=== PATIENT | female | born 1985 ===

== ENCOUNTER 2023-04-26 10:40 | Outpatient (REF) | payer BC, SELFPAY ==
[2023-04-26 14:00] LABS: *AMPHETAMINES SCREEN URINE Negative (Negative); *BARBITURATES SCREEN URINE Negative (Negative); *BENZODIAZEPINES SCREEN URINE Negative (Negative); Cannabinoids THC Negative (Negative); Cocaine Screen,Urine Negative (Negative); METHADONE URINE SCREEN Negative (Negative); OPIATES URINE SCREEN Negative (Negative)
[2023-04-26 14:02] LABS: Tricyclic Antidepressants Negative (Negative)
== END 2023-04-26 10:41 | disposition home or self-care (01) ==
LOC: LBN 10:40
PROVIDERS: PCP Advanced Practice Midwife; Visit Provider Advanced Practice Midwife
DX: O09.513 Supervision of elderly primigravida, third trimester (principal); O99.013 Anemia complicating pregnancy, third trimester
CPT/HCPCS: 80307; 87081

== ENCOUNTER 2023-05-06 03:25 | Inpatient (IN) | payer BC, SELFPAY ==
[2023-05-06] VITALS (17 sets, daily range): BP systolic 108–140; BP diastolic 59–82; PULSE 78–111; RESP 16–18; TEMP 36.3–36.8; O2SAT 92–100
[2023-05-06 03:54] LABS: HCT 33.2 % (36.0-46.0); HGB 10.4 g/dL (11.2-15.7); MCH 20.8 pg (27.0-33.0); MCHC 31.3 % (32.0-36.0); MPV 10.3 fL (8.0-11.0); Platelet Count 238 10^3/uL (130-400); RBC 4.99 10^6/uL (3.93-5.22); RDW 19.6 % (11.7-14.6); RDW-SD 44.2 fL; WBC 16.18 10^3/uL (4.4-10.8)
--- NOTE | 2023-05-06 05:27 | W.PM.OBHPL1 ---
Date of service: 05/06/23 Time of Service: 05:00 Assessment and Plan Assessment and plan (1) Uterine contractions: Status: Acute Assessment and plan: 1. 20 minute tracing obtained on arrival that was reassuring. 2. VE 2/90/-1 posterior and soft. Spann score 8 3. Offer of continued observation or discharge to home to return with active labor reviewed, they plan to stay at this time for further assessment due to distance from home being approximately 1 hour away. 4. Her Manufacturing Teacher from home practice is with her as well as her for support. Will support minimal intervention at this time as there is no medical indication for intervention, support labor, reassess as indicated. 5. Will admit to inpatient when in active labor or if otherwise indicated. 6. Expect NVD. [facility] OB-HPI Labor/Delivery History of Present Illness Reason for Visit: rule out labor Chief Complaint: Uterine Contractions. TELMA Calculator Estimated Delivery Date Method Current WG Current Estimate 05/18/23 Ultrasound #1 38w 2d Other Estimates 05/18/23 LMP (Certain) 38w 2d Comments: Lyndsay, her , Roman, and Mame (her home lime supervisor) have presented for assessment of labor. She is a healthy young women with the diagnosis of Thalassemia trait and has recently had diagnosis of anemia which has responded to iron therapy. This is their first baby. has been uncomplicated outside of the need for her to transfer into hospital care from home . She has been having regular contractions and loss of mucous plug since the evening of 05/05. Contractions have continued to become closer and stronger over that time. Mame had done a cervical exam at Lyndsay's home in the evening of 05/05 and was 1cm and not well effaced. They are working well together and are requesting support but not intervention. ELAINE History of Present Expected Delivery Route/Plan - RENU/ collab d/t thalassemia trait FOB - Roman GBS negative Specific Issues/Plan 1. Transfer from Home at 36 + 6 due to anemia. 2. Alpha thalassemia Trait / Anemia 04/22- Hgb 9.8/31.7. Was taking gummies without iron, Started iron supplements QD 04/09. 2a. hgb 10.7 Hep C neg . Hemorrhoids, cyst in vestibular gland on right side. will monitor. 4. Advanced maternal age- normal anatomy scan at [facility]. [place] [facility] [place] and thalassemia trait. 5. Constipation - improved with magnesium PO Assessment: History Reviewed & Current Narrative: There are additional noted from most of her care scanned into chart as well. Review of Systems All systems reviewed & are unremarkable except as noted in HPI and below (uterine contractions) Genitourinary Comments: mucous plug loss with some pink discharge PFSH All Active Problems (Updated 05/06/23 @ 05:43 by Elenita Ramirez CNM) Uterine contractions (Acute) (Acute) Anemia affecting first (Acute) Alpha thalassemia (Acute) Advanced maternal age (AMA) in (Acute) Family History Other Diabetes Stroke Social History Smoking risk assessment performed?: No Current gender identity: female History History 1 Para Hx # Term Pregnancies 0 Multiple births Hx # Pregnancies Ectopic pregnancies AB induced Hx Number of Living Children AB spontaneous Meds Allergies and Home Medications Allergies Allergy/AdvReac Type Severity Reaction Status Date / Time seasonal AdvReac Other (See Uncoded 05/06/23 05:37 Comment) Home Medications Medication Instructions Recorded Confirmed Type blood builder PO .qod 04/26/23 History lactobacillus combination no.4 3 3,000 mmu cells PO DAILY 04/26/23 History billion cell capsule (Probiotic) magnesium 250 mg tablet 250 mg PO DAILY 04/26/23 History mecobalamin (vitamin B12) 1,000 1,000 mcg PO DAILY 04/26/23 History mcg chewable tablet Exam Physical Exam Vital signs: Pulse BP 98 H 131/82 05/06/23 03:11 05/06/23 03:11 Vital Signs Reviewed: Yes Constitutional Constitutional: no acute distress (is working well with her contractions) Detailed Labor and Delivery Exam Dilation: 2 Effacement (%): 90 station: -1 Cervix position: posterior Consistency: soft Spann Score: Cervical Points Exam 0 1 2 3 Dilation Closed 1-2cm 3-4 cm 5-6cm Effacement 0-30% 40-50% 60-70% 80% Consistency Firm Medium Soft Station -3 -2 -1,0 +1,+2 Position Posterior Mid Anterior SPANN Score(Cervical Ripeness Score): 8 Amniotic Membrane Status: Intact Monitor Mode: Palpation Contraction Frequency(min): 4-8 Contraction Duration(sec): 60 Contraction Intensity: Mild/Moderate Comments: initial 20 minute tracing is reassuring with irregular contractions noted, CAT I Fetus A Est. Weight: 7 lb Assessment Note: currently tracing is off, FHR will be by doppler. She had 20 minute tracing on arrival that was CAT I HEENT Exam HEENT Exam: Normal Neck Exam Neck Exam: Normal (visual exam normal, full range of motion) Chest/Brest/Axilla Exam Chest Exam: Normal Breast Exam Breast Exam: Not Done Respiratory Exam Respiratory Exam: Normal Cardiovascular Exam Cardiovascular Exam: Normal Abdominal Exam Abdominal Exam: Normal (gravid uterus, size equals dates, cephalic presentation) Rectal Exam Rectal Exam: Not Done Exam Exam: Normal Extremities Exam Extremities Exam: Normal Back/Spine/Pelvis Exam Back Exam: Not Done Pelvis Adequate: Yes Skin Exam Skin Exam: Normal Neurological Exam Neurological Exam: Normal Psychiatric Exam Psychiatric Exam: Normal Results Results Group Beta Strep: Negative Blood Type: B+ Rubella Status: Immune Varicella Immunity: Not Tested Lab Results: Hep B and C neg, HIV neg, GC CT neg, Abnormal Lab Findings: Abnormal Labs 05/06/23 03:43 WBC 16.18 H Hgb 10.4 L Hct 33.2 L MCV 67 L MCH 20.8 L MCHC 31.3 L RDW 19.6 H Risk Assessment Risk for Shoulder Dystocia 40 Weeks: NEGATIVE FOR: EFW> 4500 gms, Maternal Weight Gain >40lb or Post Dates Delivery Plan @ 36wks: at [facility] Delivery Plan @ 40 wks: VAD Risk for Pre-Eclampsia Date Initiated/Initials: 04/26/23 KM Yes, if 2 or more: POSITIVE FOR: Nulliparity and Age>= 35 yrs; NEGATIVE FOR: >10yr btwn pregnancies, BMI>30, ethinicty, Mother/Sister w/ Pre-E or Previous IUGR Risk for Post- Hemorrhage 36 Weeks: NEGATIVE FOR: Anemia, hgb<10, Low platelets(thrombocytopenia), Gestational HTN or Pre-E, Polyhydraminios or EFW>4500gms 40 Weeks: NEGATIVE FOR: Anemia, hgb<10, Low platelets (thrombocytopenia), Gestation HTN or Pre-E, Polyhydraminios or EFW>4500gms At Risk?: No (prodromal latent labor, mild anemia, risk will be reassessed in active labo) Risks Reviewed Risks Reviewed Upon Admission: Yes
[2023-05-06 05:52] LABS: MCV 67 fL (80-95)
--- NOTE | 2023-05-06 10:32 | PGE_ITS ---
Date of service: 05/06/23 Time of Service: 10:32 Pelvic Exam Dilation: 3 Effacement (%): 90 station: 0 Cervix Position: mid Consistency: soft Nitrazine: Positive Contractions Monitor Mode: External Contraction Frequency(min): every 4 Contraction Duration(sec): 50 Intensity: Moderate/Strong Fetus A Monitor: Doppler Heart Rate Baseline: 130 Presentation: Vertex FHR Rhythm: Regular Decelerations: None Amniotic Membrane Status: Ruptured Assessment Note: Carina declines continuous monitoring Assessment and Plan Assessment and plan (1) Spontaneous onset of labor: Status: Acute Assessment and plan: Comfort measures, ball and mat provided. Anticipate . Objective Abnormal lab results 05/06/23 Range/Units 03:43 WBC 16.18 H (4.4-10.8) 10^3/uL Hgb 10.4 L (11.2-15.7) g/dL Hct 33.2 L (36.0-46.0) % MCV 67 L (80-95) fL MCH 20.8 L (27.0-33.0) pg MCHC 31.3 L (32.0-36.0) % RDW 19.6 H (11.7-14.6) % Temp Pulse Resp BP Pulse Ox 97.9 F 97 H 16 109/61 98 05/06/23 08:14 05/06/23 08:14 05/06/23 08:14 05/06/23 08:14 05/06/23 08:14 Laboratory Results WBC 16.18 10^3/uL (4.4-10.8) H 05/06/23 03:43 RBC 4.99 10^6/uL (3.93-5.22) 05/06/23 03:43 Hgb 10.4 g/dL (11.2-15.7) L 05/06/23 03:43 Hct 33.2 % (36.0-46.0) L 05/06/23 03:43 MCV 67 fL (80-95) L 05/06/23 03:43 MCH 20.8 pg (27.0-33.0) L 05/06/23 03:43 MCHC 31.3 % (32.0-36.0) L 05/06/23 03:43 RDW 19.6 % (11.7-14.6) H 05/06/23 03:43 Plt Count 238 10^3/uL (130-400) 05/06/23 03:43 MPV 10.3 fL (8.0-11.0) 12 03:43 Patient ABO/Rh B Positive 12 03:43 Antibody Screen NEGATIVE 05/06/23 03:43 Subjective Interval history since last seen: Carina has been resting and napping. She awoke with stronger contractions and she has been walking around the room. She is leaking a small amount of clear fluid. Her home health and safety director has been providing labor support. Results Hemoglobin/Hematocrit: Hgb 10.4 g/dL (11.2-15.7) L 05/06/23 03:43 Hct 33.2 % (36.0-46.0) L 05/06/23 03:43 Abnormal Lab Findings: Abnormal Labs 05/06/23 03:43 WBC 16.18 H Hgb 10.4 L Hct 33.2 L MCV 67 L MCH 20.8 L MCHC 31.3 L RDW 19.6 H
--- NOTE | 2023-05-06 17:24 | W.PM.OBNL1 ---
Date of service: 05/06/23 Time of Service: 17:24 Pelvic Exam Dilation: 3 Effacement (%): 95 station: 0 Position: MARY Cervix Position: posterior Consistency: soft Pooling: Positive Comments: SVE at 1446 Contractions Monitor Mode: Palpation Contraction Frequency(min): every 4 minutes Contraction Duration(sec): every 4 min Fetus A Monitor: Doppler (declines external monitor) Heart Rate Baseline: 140 Presentation: Vertex Decelerations: None Assessment and Plan Assessment and plan (1) Spontaneous onset of labor: Status: Acute Assessment and plan: Discussed small change in her cervix. ambulation and shower recommended to stimulate contractions. Anticipate . If no evidence of active labor in 2-3 hours, will offer augmentation of labor. Objective Abnormal lab results 05/06/23 Range/Units 03:43 WBC 16.18 H (4.4-10.8) 10^3/uL Hgb 10.4 L (11.2-15.7) g/dL Hct 33.2 L (36.0-46.0) % MCV 67 L (80-95) fL MCH 20.8 L (27.0-33.0) pg MCHC 31.3 L (32.0-36.0) % RDW 19.6 H (11.7-14.6) % Temp Pulse Resp BP Pulse Ox 97.3 F L 78 16 140/78 98 05/06/23 17:01 05/06/23 14:52 05/06/23 14:51 05/06/23 14:52 05/06/23 14:51 Laboratory Results WBC 16.18 10^3/uL (4.4-10.8) H 05/06/23 03:43 RBC 4.99 10^6/uL (3.93-5.22) 05/06/23 03:43 Hgb 10.4 g/dL (11.2-15.7) L 05/06/23 03:43 Hct 33.2 % (36.0-46.0) L 05/06/23 03:43 MCV 67 fL (80-95) L 05/06/23 03:43 MCH 20.8 pg (27.0-33.0) L 05/06/23 03:43 MCHC 31.3 % (32.0-36.0) L 05/06/23 03:43 RDW 19.6 % (11.7-14.6) H 05/06/23 03:43 Plt Count 238 10^3/uL (130-400) 05/06/23 03:43 MPV 10.3 fL (8.0-11.0) 05/06/23 03:43 Patient ABO/Rh B Positive 12 03:43 Antibody Screen NEGATIVE 05/06/23 03:43 Subjective Interval history since last seen: Carina slept for a while. She awoke and requested a vaginal exam. Her contractions are stronger with ambulation but irregular. Results Hemoglobin/Hematocrit: Hgb 10.4 g/dL (11.2-15.7) L 05/06/23 03:43 Hct 33.2 % (36.0-46.0) L 05/06/23 03:43 Abnormal Lab Findings: Abnormal Labs 05/06/23 03:43 WBC 16.18 H Hgb 10.4 L Hct 33.2 L MCV 67 L MCH 20.8 L MCHC 31.3 L RDW 19.6 H
--- NOTE | 2023-05-06 18:44 | W.PM.OBNL1 ---
Date of service: 05/06/23 Time of Service: 18:44 Pelvic Exam Dilation: 3 Effacement (%): 95 station: 0 Cervix Position: mid Consistency: soft Comments: exam by Mame Jones CM Contractions Monitor Mode: Palpation Contraction Frequency(min): every 4 min Intensity: Moderate Fetus A Monitor: Doppler Heart Rate Baseline: 140 Decelerations: None Assessment and Plan Assessment and plan (1) Spontaneous onset of labor: Status: Acute Assessment and plan: I reviewed options with Roman Lim and Mame including pitocin augmentation with or without epidural or nitrous oxide or expectant management. I discussed my concern about her level of fatigue after 24 hours of contractions. Carina feels strongly that she wishes to avoid pitocin augmentation or epidural analgesia at this time. She would like to await spontaneous labor. She has been leaking only small amounts of fluid and we discussed artificial rupture of a forebag and she will consider that option. Risks of awaiting active labor including infection and maternal fatigue were discussed. She verbalized understanding. Objective Abnormal lab results 05/06/23 Range/Units 03:43 WBC 16.18 H (4.4-10.8) 10^3/uL Hgb 10.4 L (11.2-15.7) g/dL Hct 33.2 L (36.0-46.0) % MCV 67 L (80-95) fL MCH 20.8 L (27.0-33.0) pg MCHC 31.3 L (32.0-36.0) % RDW 19.6 H (11.7-14.6) % Temp Pulse Resp BP Pulse Ox 97.7 F 89 16 135/69 100 05/06/23 17:54 05/06/23 17:54 05/06/23 17:54 05/06/23 17:54 05/06/23 17:54 Laboratory Results WBC 16.18 10^3/uL (4.4-10.8) H 05/06/23 03:43 RBC 4.99 10^6/uL (3.93-5.22) 05/06/23 03:43 Hgb 10.4 g/dL (11.2-15.7) L 05/06/23 03:43 Hct 33.2 % (36.0-46.0) L 05/06/23 03:43 MCV 67 fL (80-95) L 05/06/23 03:43 MCH 20.8 pg (27.0-33.0) L 05/06/23 03:43 MCHC 31.3 % (32.0-36.0) L 05/06/23 03:43 RDW 19.6 % (11.7-14.6) H 05/06/23 03:43 Plt Count 238 10^3/uL (130-400) 05/06/23 03:43 MPV 10.3 fL (8.0-11.0) 05/06/23 03:43 Patient ABO/Rh B Positive 12 03:43 Antibody Screen NEGATIVE 05/06/23 03:43 Subjective Interval history since last seen: Carina continues to have regular contractions every 3-4 minutes, mod to strong. Mame Jones is present and providing labor support. She Her cervix was examined her cervix at 1800. Mame reported that her cervix is unchanged from my exam at 1446. Mame requested a discussion of options with Carina and Roman. Results Hemoglobin/Hematocrit: Hgb 10.4 g/dL (11.2-15.7) L 05/06/23 03:43 Hct 33.2 % (36.0-46.0) L 05/06/23 03:43 Abnormal Lab Findings: Abnormal Labs 05/06/23 03:43 WBC 16.18 H Hgb 10.4 L Hct 33.2 L MCV 67 L MCH 20.8 L MCHC 31.3 L RDW 19.6 H
--- NOTE | 2023-05-06 21:32 | W.PM.OBNL1 ---
Date of service: 05/06/23 Time of Service: 21:32 Informed Consent Informed Consent: Augmentation of Labor (risks and benefits of AROM or pitocin augmentation . benefits including prevention of fatigue and intrapartum infection. ) and Risk,Benefits,Alternatives Discussed (risks of prolonged rupture of membranes including maternal and infection discussed. ) Pelvic Exam Dilation: 4 Effacement (%): 100 station: 0 Cervix Position: mid Consistency: soft Contractions Monitor Mode: External Contraction Frequency(min): every 3-4 Contraction Duration(sec): 50 Intensity: Moderate/Strong Fetus A Monitor: External (US) Heart Rate Baseline: 140 Variability: Moderate (6-25 BPM) Categories: Category I Accelerations: 15 X 15 Decelerations: None Assessment and Plan Assessment and plan (1) Spontaneous onset of labor: Status: Acute Assessment and plan: I recommended a monitor tracing and Carina was hesitant but did agree to a 20 minute tracing which was reactive. (2) Prolonged rupture of membranes: Status: Acute Assessment and plan: Discused artificial rupture of a forebag and Sury agree to this. AROM was performed for a small amount of blood tinged fluid. She experienced some strong and frequent contractions after the AROM. She is now resting on her right side in bed and coping well with contractions. Objective Abnormal lab results 05/06/23 Range/Units 03:43 WBC 16.18 H (4.4-10.8) 10^3/uL Hgb 10.4 L (11.2-15.7) g/dL Hct 33.2 L (36.0-46.0) % MCV 67 L (80-95) fL MCH 20.8 L (27.0-33.0) pg MCHC 31.3 L (32.0-36.0) % RDW 19.6 H (11.7-14.6) % Temp Pulse Resp BP Pulse Ox 98.0 F 91 H 16 130/74 98 05/06/23 20:30 05/06/23 19:39 05/06/23 19:39 05/06/23 19:39 05/06/23 19:39 Laboratory Results WBC 16.18 10^3/uL (4.4-10.8) H 05/06/23 03:43 RBC 4.99 10^6/uL (3.93-5.22) 05/06/23 03:43 Hgb 10.4 g/dL (11.2-15.7) L 05/06/23 03:43 Hct 33.2 % (36.0-46.0) L 05/06/23 03:43 MCV 67 fL (80-95) L 05/06/23 03:43 MCH 20.8 pg (27.0-33.0) L 05/06/23 03:43 MCHC 31.3 % (32.0-36.0) L 05/06/23 03:43 RDW 19.6 % (11.7-14.6) H 05/06/23 03:43 Plt Count 238 10^3/uL (130-400) 05/06/23 03:43 MPV 10.3 fL (8.0-11.0) 05/06/23 03:43 Patient ABO/Rh B Positive 05/06/23 03:43 Antibody Screen NEGATIVE 05/06/23 03:43 Subjective Interval history since last seen: Carina has been coping well with contractions. She declines pitocin augmentation. Results Hemoglobin/Hematocrit: Hgb 10.4 g/dL (11.2-15.7) L 05/06/23 03:43 Hct 33.2 % (36.0-46.0) L 05/06/23 03:43 Abnormal Lab Findings: Abnormal Labs 05/06/23 03:43 WBC 16.18 H Hgb 10.4 L Hct 33.2 L MCV 67 L MCH 20.8 L MCHC 31.3 L RDW 19.6 H
[2023-05-07] VITALS (19 sets, daily range): BP systolic 115–174; BP diastolic 62–86; PULSE 77–114; RESP 16–18; TEMP 36.6–37.3; O2SAT 95–98
[2023-05-07] MEDS: Oxytocin 10 UNITS/ML VIAL IM (04:07)
--- NOTE | 2023-05-07 11:03 | W.OBDELIVERY ---
Date of service: 05/07/23 Time of Service: 05:00 OB Labor/ Delivery Information Baby A Delivery Delivery Method: Spontaneaous Presentation: Vertex Vertex Position: Left Occipital Anterior Cord Description Comment: short cord Amniotic Fluid: Clear Estimated Blood Loss: 350 Delivery Outcome: Liveborn Complications: increased respiratory rate and course breathe sounds. Dr Jacob called at 30 minutes after to assess baby. Transferred: Remains with Mother Note: After AROM of a forebag, contractions intensified and Carina progressed to 8 cms. She ambulated and used the balls for comfort and had an urge to push. She sat on the toilet as she had an urge to have a BM and large stool was noted on exam. At that time she was 9 cms. She progressed rapidly to full dilation and began pushing in the bed on hands and knees. FHTs 140s during first stage of labor. FHTs 140s in second stage by doppler. Second stage huddle was done. Spontaneous delivery of male infant delivered in MARY position. Baby was placed on mother's abdomen and dried and stimulated. He had a spontaneous cry. Carina requested to leave the placenta attached to the baby and the placenta was delivered spontaneously after it stopped pulsing and was placed next to the baby. Later, the Cord was clamped and cut by the baby's father. The placenta appears to be intact with a three vessel cord. There was bright bleeding after the placenta delivered and I discussed indication for pitocin at that time and Carina agreed only in the event of excess bleeding. Pitocin 10 units was administered after delivery of the placenta and the uterus was massaged. The perineum was inspected and a first degree perineal laceration was repaired as well as a superficial perineal skin tear. The baby was transferred to the [facility] for further evaluation due to rapid respirations and course breath sounds at [address] jacob was oaged to come to assess the bay. He remained vigorous and pink with no retracting or nasal flaring noted. After delivery, Mother and baby Moses and father of the baby were stable and bonding well in the delivery room and there were no complications. Providers Nurse Drug Safety Assistant: Elenita Rios Nurse: Wendy Parson Nurse: Linsey Posey Labor/Delivery Information Number of Babies in Womb: 1 Steroids Given: None Reason Steroids Not Administered: N/A Group Beta Strep: Negative Antibiotics Administered: No Rubella Status: Immune Blood Type: B+ Varicella Immunity: Not Tested Maternal Complications: Premature Rupture of Membranes Shoulder Dystocia: No Stages of Labor Onset of Labor Date: 05/05/23 Onset of Labor Time: 03:00 Complete Dilatation Date: 05/07/23 Complete Dilatation Time: 02:30 Labor - Stage 1 Duration: 47 hours and 30 minutes ROM Baby A: 05/06/23 ROM Baby A: 09:40 ROM Total Time- Baby A: [id number] Infant Delivery Date-Baby A: 05/07/23 Infant Delivery Time-Baby A: 03:10 Labor Stage 2 Duration: 40 minutes Placenta Delivery Date-Baby A: 05/07/23 Placenta Delivery Time-Baby A: 03:26 Labor-Stage 3 Duration: 16 minutes Total Length of Labor-Baby A: 48 hours and 10 minutes Placenta Status: Delivered Baby A Gender: Male Gestational Status: Early Term (37-38.6 wks) Gestational Age in Weeks/Days: 38 Weeks and 3 Days weight: 6 lb 8.235 oz Length-Baby A: 18.25 in Head Circumference-Baby A: 13 in
[2023-05-08 02:00] VITALS: BP 122/67; PULSE 80; RESP 18; TEMP 36.8
[2023-05-08 06:55] LABS: HCT 31.8 % (36.0-46.0); MCHC 31.4 % (32.0-36.0); MPV 10.6 fL (8.0-11.0); Platelet Count 233 10^3/uL (130-400); RBC 4.77 10^6/uL (3.93-5.22); RDW 19.5 % (11.7-14.6); RDW-SD 44.5 fL; WBC 17.55 10^3/uL (4.4-10.8)
[2023-05-08 06:58] LABS: MCV 67 fL (80-95)
[2023-05-08 08:00] VITALS: BP 109/70; PULSE 75; RESP 16; TEMP 36.7; O2SAT 97
--- NOTE | 2023-05-08 10:49 | DSE_ITS ---
Date of service: 05/08/23 Time of Service: 10:52 DS: Diagnosis Discharge Diagnosis (1) Spontaneous onset of labor: Status: Acute Asessment and Plan: Caring for baby independently. Pain is managed well with oral analgesics. Voiding without difficulty. well. A - stable mother and baby , Post day 1 P - Discharge to home today. Routine post instructions. [facility] or with Mame Jones CM. (2) Prolonged rupture of membranes: Status: Acute Discharge Plan Disposition Patient Disposition: Home Condition: Good Discharge Details Reason For Visit: Term Labor Admit Date/Time: 05/06/23 03:25 Admit Provider: Elenita Ramirez Attending Provider: Elenita Ramirez Primary Care Provider: Elenita Rios Home Meds and New Rx's Prescriptions: No Action blood builder PO .qod magnesium 250 mg tablet 250 mg PO DAILY Probiotic 3 billion cell capsule 3,000 mmu cells PO DAILY Rx Instructions: administer with a meal mecobalamin (vitamin B12) 1,000 mcg tablet,chewable 1,000 mcg PO DAILY Discharge Instructions Stand Alone Forms: Instructions, Post Vaginal Deliver Activity:: Activity as Tolerated Equipment/Supplies:: No Equipment Needed Diet:: As Tolerated Discharge Orders Discharge Orders: Discharge Order (Routine); Ordered 05/08/23 Ordered By: Elenita Rios OB:DS Summary Summary Vaginal Delivery Method: Spontaneaous Episiotomy Description: None Laceration Description: Perineal Laceration Extension: First Degree Contraception Discussed Contraception Discussed: No, Gender-Baby A: Male weight: 6 lb 8.235 oz Status at Discharge Functional status at discharge: independent ambulation Overall status at discharge: patient is back to baseline Mental Status: mental status grossly normal Speech and Movement: speech and movement normal Mood: congruent mood Affect: normal affect Exam Physical Exam Vital signs: Temp Pulse Resp BP Pulse Ox 98.1 F 75 16 109/70 97 05/08/23 08:00 05/08/23 08:00 05/08/23 08:00 05/08/23 08:00 05/08/23 08:00 Narrative: Carina had a BM this morning and did not have to strain. She feels well and wishes to go home. Respiratory Exam Respiratory Exam: Normal Cardiovascular Exam Cardiovascular Exam: Normal Fundal Exam Fundus: Below Umbilicus and Firm Exam Perineum: Repair Intact External: Absent erythema, swelling or ecchymosis Extremities Exam Extremity Exam: Normal Skin Exam Skin Exam: Normal Psychiatric Exam Psychiatric Exam: Normal [facility] All Active Problems (Updated 05/06/23 @ 21:35 by Elenita Rios CNM) Prolonged rupture of membranes (Acute) Spontaneous onset of labor (Acute) Uterine contractions (Acute) (Acute) Anemia affecting first (Acute) Alpha thalassemia (Acute) Advanced maternal age (AMA) in (Acute) Family History Other Diabetes Stroke Social History Smoking/Tobacco Use Status: Never Smoking risk assessment performed?: Yes Alcohol Intake: never Drug use: Never Substance use type: does not use Housing: house Current gender identity: female History History 1 Para 0 Hx # Term Pregnancies 0 Multiple births Hx # Pregnancies Ectopic pregnancies AB induced Hx Number of Living Children AB spontaneous DS: Data Vitals/I&O Vitals and I&O: Vital Signs Temperature 98.1 F 05/08/23 08:00 Temperature Source Oral 05/08/23 08:00 Pulse 75 05/08/23 08:00 Pulse Rhythm Regular 05/08/23 08:00 Respiratory Rate 16 05/08/23 08:00 Respiratory Depth Normal 05/06/23 20:51 Blood Pressure 109/70 05/08/23 08:00 Blood Pressure Mean 83 05/08/23 08:00 Pulse Oximetry 97 05/08/23 08:00 Pain Level 0 05/08/23 08:00 Comment Patient in shower at this time 05/06/23 16:05 Intake & Output 05/07/23 05/07/23 05/08/23 11:59 23:59 11:59 Output Total 1100 / 3200 2100 / 3200 Balance -1100 / -3200 -2100 / -3200 Output: Urine 1100 / 3200 2100 / 3200 Other: Urine Color [place] Urine Appearance Clear Clear Urine Odor None None Voiding Methods Toilet Toilet Data Completed and Pending Labs on day of discharge: Labs from last 24 hours 05/08/23 06:40 WBC 17.55 H RBC 4.77 Hgb 10.0 L Hct 31.8 L MCV 67 L MCH 21.0 L MCHC 31.4 L RDW 19.5 H Plt Count 233 MPV 10.6 VZV IgG Antibody Pending Path Cons Comment Pending
[2023-05-08 12:00] VITALS: BP 112/63; PULSE 97; RESP 16; TEMP 36.6; O2SAT 97
[2023-05-10 10:06] LABS: Varicella IgG Antibody Positive (See Note)
== END 2023-05-08 15:45 | disposition home or self-care (01) | DRG 806 ==
LOC: OBS 07:23
PROVIDERS: Admitting Provider Advanced Practice Midwife; PCP Advanced Practice Midwife; Visit Provider Advanced Practice Midwife
DX: O42.02 Full-term premature rupture of membranes, onset of labor within 24 hours of rupture (principal); O99.12 Other diseases of the blood and blood-forming organs and certain disorders involving the immune mechanism complicating childbirth; Z37.0 Single live birth; Z3A.38 38 weeks gestation of pregnancy; D56.3 Thalassemia minor; O99.02 Anemia complicating childbirth; D64.89 Other specified anemias; O99.62 Diseases of the digestive system complicating childbirth; K64.8 Other hemorrhoids; K59.00 Constipation, unspecified; O69.3XX0 Labor and delivery complicated by short cord, not applicable or unspecified; O70.0 First degree perineal laceration during delivery
CPT/HCPCS: 36415; 85027; 86787; 86850; 86900; 86901; J2590